=== PATIENT | male | born 1985 | race Caucasian/White ===

== ENCOUNTER 2024-03-14 13:09 | Inpatient (IN) | payer OTHER ==
[2024-03-14 13:53] VITALS: BMI 32.8
[2024-03-14] MEDS ORDERED: IBUPROFEN 400 MG TABLET (FP) PO PRN (14:08)
[2024-03-14] MEDS ORDERED: NALOXONE HCL 0.4 MG/ML VIAL IM PRN (14:08)
[2024-03-14] MEDS ORDERED: BENZONATATE 200 MG CAPSULE PO PRN (14:08)
[2024-03-14] MEDS ORDERED: NALOXONE (NARCAN) HCL 4 MG/0.1 ML SPRAY NS PRN (14:08)
[2024-03-14] MEDS ORDERED: BENZOCAINE/MENTHOL (CHLORASEPTIC ) LOZENGE MM PRN (14:08)
[2024-03-14] MEDS ORDERED: ACETAMINOPHEN 325 MG TABLET (FP) PO PRN (14:08)
[2024-03-14] MEDS ORDERED: BISMUTH SUBSALICYLATE 524 MG/30 ML PO PRN (14:08)
[2024-03-14] MEDS ORDERED: MAG HYDROX/AL HYDROX/SIMETH 30 ML UNIT-DOSE CUP PO PRN (14:08)
[2024-03-14] MEDS ORDERED: ONDANSETRON *ODT* 4 MG TABLET SL PRN (14:08)
[2024-03-14] MEDS ORDERED: guaiFENesin 600 MG TABLET.ER (FP) PO PRN (14:08)
[2024-03-14] MEDS ORDERED: LOPERAMIDE HCL 2 MG CAPSULE PO PRN (14:08)
[2024-03-14] MEDS ORDERED: DICYCLOMINE HCL 10 MG CAPSULE PO PRN (14:08)
[2024-03-14] MEDS ORDERED: POLYETHYLENE GLYCOL (HEALTHYLAX) 3350 17 GM PACKET PO PRN (14:08)
[2024-03-14] MEDS ORDERED: MAGNESIUM HYDROX 2400MG/30ML ORAL SUSPENSION 30 ML CUP PO PRN (14:08)
[2024-03-14] MEDS ORDERED: amLODIPine BESYLATE 5 MG TABLET (FP) ONE (14:26)
[2024-03-14] MEDS: amLODIPine BESYLATE 10 MG TABLET (FP) PO SCH (14:29)
[2024-03-14] MEDS ORDERED: chlordiazePOXIDE HCL 25 MG CAPSULE ONE (14:32)
[2024-03-14] MEDS: chlordiazePOXIDE HCL 25 MG CAPSULE PO PRN (14:37)
[2024-03-14] MEDS: IBUPROFEN 600 MG TABLET (FP) PO PRN (17:30)
[2024-03-14] MEDS: chlordiazePOXIDE HCL 25 MG CAPSULE PO SCH (17:30)
[2024-03-14] MEDS: METHOCARBAMOL 500 MG TABLET PO PRN (17:30)
[2024-03-14] MEDS: THIAMINE 100 MG TABLET PO SCH (22:53)
[2024-03-14] MEDS: MELATONIN 5 MG TABLETS PO SCH (22:53)
[2024-03-15] MEDS: cloNIDine HCL 0.1 MG TABLET PO PRN (05:32)
[2024-03-15 09:56] LABS: HEMATOCRIT 35.3 % (35.4-49); HEMOGLOBIN 11.6 GM/dL (11.7-16.9); MCH 27.2 pg (25.7-33.7); MCHC 32.9 g/dl (32.0-35.9); MEAN CELL VOLUME 82.8 fl (80-96); MEAN PLT VOLUME 7.7 fl (7.5-11.1); PLATELET COUNT 81 10^3/uL (134-434); RBC 4.26 M/mm3 (4.00-5.60); WHITE BLOOD COUNT 4.9 K/mm3 (4.0-10.0)
[2024-03-15] MEDS: PRENATAL VITAMINS W/ FOLIC ACID TABLET (FP) PO SCH (10:04)
[2024-03-15 10:09] LABS: POTASSIUM 4.2 mmol/L (3.5-5.1)
[2024-03-15 10:12] LABS: ALBUMIN 4.1 g/dl (3.4-5.0); BLOOD UREA NITROGEN 11.2 mg/dL (7-18); CALCIUM 9.5 mg/dL (8.5-10.1)
[2024-03-15 10:16] LABS: CREATININE 0.8 mg/dL (0.55-1.3)
[2024-03-15 10:17] LABS: TOT PROT 8.1 g/dl (6.4-8.2)
[2024-03-15] MEDS: LABETALOL HCL 200 MG TABLET (FP) PO SCH (11:02)
[2024-03-16] MEDS: chlordiazePOXIDE HCL 25 MG CAPSULE PO SCH (05:46)
[2024-03-16] MEDS: NALTREXONE HCL 50 MG TABLET PO SCH (10:04)
[2024-03-17] MEDS ORDERED: chlordiazePOXIDE HCL 10 MG CAPSULE PO PRN
[2024-03-17] MEDS: chlordiazePOXIDE HCL 10 MG CAPSULE PO SCH (05:42)
[2024-03-18] MEDS: chlordiazePOXIDE HCL 10 MG CAPSULE PO SCH (05:37)
[2024-03-18] MEDS: hydrOXYzine PAMOATE 25 MG CAPSULE (FP) PO PRN (11:34)
[2024-03-19] MEDS: chlordiazePOXIDE HCL 10 MG CAPSULE PO ONE (05:33)
[2024-03-19 06:39] VITALS: RESP 18
[2024-03-19] MEDS: NALTREXONE HCL 50 MG TABLET PO SCH (09:45)
[2024-03-19] MEDS: NALTREXONE MICROSPHERES (VIVITROL) 380 MG DISP.SYRIN IM ONE (09:45)
[2024-03-19 11:06] VITALS: BP 134/80; PULSE 77; TEMP 97.9
== END 2024-03-19 09:47 | disposition home or self-care (01) | DRG 775 ==
LOC: YASAS 13:09 → Y6N 15:22
PROVIDERS: ADMIT Allergy & Immunology; ATTEND Surgery
PROC: HZ2ZZZZ Detoxification Services for Substance Abuse Treatment (ICD-10-PCS; principal; 2024-03-14)
DX: F10.230 Alcohol dependence with withdrawal, uncomplicated (principal); F41.9 Anxiety disorder, unspecified; G62.9 Polyneuropathy, unspecified; E11.42 Type 2 diabetes mellitus with diabetic polyneuropathy; R56.9 Unspecified convulsions; Z87.891 Personal history of nicotine dependence; Z62.810 Personal history of physical and sexual abuse in childhood; Z63.8 Other specified problems related to primary support group
CPT/HCPCS: 36415; 80053; 80305; 80307; 82140; 82962; 85027; 86780; 93005; 93010